=== PATIENT | female | born 1965 | race African-American/Black ===

== ENCOUNTER 2018-09-03 22:28 | Emergency (ER) | payer OTHER ==
[~2018-09-03] VITALS: Ht 162.6 cm; Wt 55.0 kg
[2018-09-03] MEDS ORDERED: SODIUM CHLORIDE 0.9% 1,000 ML IV ONE ×2 (23:06→23:15)
[2018-09-03 23:56] LABS: CLARITY URINE CLEAR (CLEAR); COLOR URINE YELLOW (YELLOW); KETONES URINE NEGATIVE (NEGATIVE); LEUKOCYTE ESTERASE URINE NEGATIVE (NEGATIVE); NITRITE URINE NEGATIVE (NEGATIVE); OCCULT BLOOD URINE NEGATIVE (NEGATIVE); PROTEIN URINE NEGATIVE (NEGATIVE); SPECIFIC GRAVITY URINE 1.024 (1.005-1.030); UROBILINOGEN URINE 0.2 E.U./dL (0.2-1.0)
[2018-09-04 00:07] LABS: HEMATOCRIT 36.5 % (36.0-48.0); HEMOGLOBIN 11.6 g/dL (12.0-16.0); MEAN CORPUSCULAR HEMOGLOBIN 23.6 pg (28.0-32.0); MEAN CORPUSCULAR VOLUME 74.1 fL (81.0-99.0); PLATELET 208 x1000/uL (130-400); RED BLOOD CELL COUNT 4.93 mill/uL (4.2-5.4); RED CELL DISTRIBUTION WIDTH 13.5 % (11.6-14.6)
[2018-09-04 00:15] LABS: CHLORIDE 105 mEq/L (98-107)
[2018-09-04 00:23] LABS: PHOSPHORUS 3.3 mg/dL (2.5-4.9)
[2018-09-04 00:33] LABS: BETA HYDROXYBUTYRATE 0.3 mMol/L (0.0-0.3)
[2018-09-04 02:41] VITALS: BP 138/76
== END 2018-09-04 02:43 | disposition home or self-care (01) ==
LOC: ER 22:28
DX: E11.65 Type 2 diabetes mellitus with hyperglycemia (principal); R10.9 Unspecified abdominal pain; R19.7 Diarrhea, unspecified; R11.2 Nausea with vomiting, unspecified; Z98.890 Other specified postprocedural states; Z88.0 Allergy status to penicillin
CPT/HCPCS: 36415; 71045; 80053; 81003; 82010; 83605; 83615; 83690; 83735; 84100; 85027; 93005; 96360; 96361; 99284; J7030